=== PATIENT | female | born 1960 | race Caucasian/White ===

== ENCOUNTER 2016-12-05 07:46 | Inpatient (IN) | payer BC ==
--- NOTE | 2016-12-04 10:02 | HP ---
DATE OF CLINIC: 11/22/2016 YANNI REGALADO : 1960 PLANNED PROCEDURE: Left Total Hip Arthroplasty DATE OF PROCEDURE: December 05, 2016 SURGEON: Erick Vazquez M.D. PCP: Dr. Mariia Orellana HISTORY OF PRESENT ILLNESS Yanni Regalado is a 56 year old female. * Medication list reviewed with patient allergy list reviewed with patient. Mrs. Regalado is in today pre-operatively for her upcoming left total hip arthroplasty on 12/05/16. Patient presents in good spirits and is eager to proceed. She denies recent illness or change in health. Patient is post a R ZANDRA with Dr. Vazquez 11/30/15 and did well with the exception of post-op nausea. She states she gets motion sickness easily and is requesting preemption with a Scopolamine patch or alternative. No other surgical complications. Her recent consult with Dr. Vazquez follows: 56-year-old female well known to me for a right ZANDRA on 11/30/15 from which she has done very well. Unfortunately, she has been having increasing problems with her left hip. With her left hip she has known degenerative disease. She uses a cane in her right hand intermittently for discomfort, primarily in the groin with radiation into the proximal thigh. She has symptoms mainly with weight-bearing, particularly with startup and with loaded flexion such as getting out of a chair or climbing a stair. She does have mild rest pain, no radicular symptoms. She is using Meloxicam daily, which helps, but is no longer satisfactory in its efficacy for her. She is interested in consideration of definitive management options. She does work in a sedentary job position. She drinks moderately. She is a non-smoker. CURRENT MEDICATION * Acyclovir 800 MG Tablet as needed for outbreaks, 0 days, 0 refills * Meloxicam 15 MG Tablet 1 once a day sig 1 qd, called into [facility] in [place] phone # [phone], 0 days, 1 refills * TraMADol HCl 50 MG Tablet 1 po q 6 hours prn pain, 5 days, 0 refills PAST MEDICAL/SURGICAL HISTORY Reported: Medical: History of Arthritis. Surgical / Procedural: Replacement of a hip Right total hip replacement done 11/30/[address] Vazquez. SOCIAL HISTORY Behavioral: Never smoked. Smoking status: Never smoker. Alcohol: Alcohol 2 beers daily. Work: Occupation quality control manager. ALLERGIES * No Known Allergies REVIEW OF SYSTEMS Systemic: No fever and no recent weight change. Head: No head symptoms. Cardiovascular: No cardiovascular symptoms. Pulmonary: No pulmonary symptoms. Gastrointestinal: No gastrointestinal symptoms. Psychological: No psychological symptoms. Skin: No skin lesions and no rash. PHYSICAL FINDINGS * Vitals taken 11/22/2016 10:11 am BP-Sitting R 96/65 mmHg 100 - 120/56 - 80 BP Cuff Size Regular Pulse Rate-Sitting 67 bpm 50 - 100 Temp-Oral 97.5 F 96 - 101 Height 64.5 in 59 - 69 Weight 156 lbs 98 - 183 Body Mass Index 26.4 kg/m2 Body Surface Area 1.77 m2 Pain Level 5 Ears, Nose, Throat: * ENT: normal. Lungs: * Clear to auscultation. Cardiovascular: Heart Rate and Rhythm: * Normal. Abdomen: * Normal. Neurological: Motor: * Dominant Hand = Right Hand. Patient is a well-developed, thin female in no acute distress, normal-appearing mood and affect. She has an antalgic gait at startup with trace Trendelenburg that improves after several steps. Evaluation of the left hip shows skin integrity to be intact without wounds, rashes or lesions. Mild tenderness laterally over the trochanter, NT in the groin, NT in the sciatic notch. ROM is just shy of 90 degrees of flexion, 40 degrees of abduction, 60 degrees ER, 30 degrees IR with significant groin discomfort. Patient can adduct to the midline and extend fully. Thigh is soft and NT. No atrophy or asymmetry compared to the contralateral side. Evaluation of the knee shows no focal tenderness and full, non-irritable motion with a normal ligamentous exam. Calf is soft and NT. Distal light touch sensation and motor function are grossly intact and symmetric. Pulses are palpable. Sitting SLR is negative. Contralateral hip is non-irritable; greater than 90 degrees flexion, 30 degrees IR, 70 degrees ER, 50 degrees of abduction, adduction past the midline and full extension. She has no pain with resisted hip flexion at 90 degrees. TESTS Pelvis and right hip from today show significant concentric narrowing of the left hip. There is a femoral head skirt osteophyte as well as a superolateral acetabular osteophyte and a medial acetabular osteophyte. Significant subchondral cystic changes within the femoral head are seen without collapse. Proximal femoral bony mineralization appears reasonable. Limited view contralateral press-fit arthroplasty shows no change in position or alignment compared to prior films. ASSESSMENT * Localized primary osteoarthritis of the left hip Advanced degenerative disease, left hip. 9 months post right ZANDRA, doing well. PREVIOUS TESTS * Test: CBC WITH DIFF Report Date: 11/10/2016 WBC 5.6 10*3/mL MCV 95.1 fL BASOPHIL 0.7 % RBC 3.87 10*6/uL Low NEUTROPHILS 53.1 % MCH 31.0 pg MCHC 32.6 g/dL Low RDW 12.3 % PLATELET COUNT 230 10*3/mL IMM NEUT % 0.4 % IMM NEUT # 0.0 10*3/mL MONOCYTES 9.2 % EOSINOPHIL 2.2 % HCT 36.8 % Low HGB 12.0 g/L LYMPHOCYTE 34.4 % ANC 3.0 10*3/mL * Test: URINALYSIS Report Date: 11/10/2016 GLUCOSE NEGATIVE PH,URINE 7.0 SPEC. GRAVITY 1.015 KETONE NEGATIVE NITRITE NEGATIVE BLOOD NEGATIVE BILIRUBIN NEGATIVE APPEARANCE CLEAR PROTEIN NEGATIVE COLOR YELLOW LEUK ESTERASE NEGATIVE UROBILINOGEN NORMAL * Test: PROTHROMBIN TIME Report Date: 11/10/2016 PROTIME 10.5 s INR 1.00 * Test: PARTIAL THROMBOPLASTIN TIME Report Date: 11/10/2016 APTT 22.3 s Low * Test: COMPREHENSIVE METABOLIC PANEL Report Date: 11/10/2016 ALT/SGPT 23 U/L ALBUMIN 4.1 g/dL ALB/GLOB RATIO 1.5 BUN 21 mg/dL BUN/CREAT RATIO 30 High CALCIUM 9.2 mg/dL GLUCOSE 91 mg/dL CREATININE 0.7 mg/dL SODIUM 138 meq/L POTASSIUM 4.4 meq/L CHLORIDE 101 meq/L CARBON DIOXIDE 30 meq/L ANION GAP 11 meq/L TOT PROTEIN 6.9 g/dL GLOBULIN 2.8 g/dL BILI,TOTAL 0.7 mg/dL AST/SGOT 20 U/L ALK PHOSPHATASE 39 U/L GFR 86 * Test: MRSA SCREEN Report Date: 11/11/2016 MRSA SCREEN NEGATIVE * Test: MSSA SCREEN Report Date: 11/11/2016 MSSA SCREEN POSITIVE FOR STAPHYLOCOCCUS AUREUS Abnormal THERAPY * Patient not eligible for fall risk assessment. PLAN * Unilateral primary osteoarthritis, left hip Physical Therapy: *Other * OTHER OxyCONTIN 10 MG T12A, 1 po q 12 hours-TO BE USED FOR AFTER SURGERY, 10 days, 0 refills TraMADol HCl 50 MG TABS, 1 po q 6 hours prn pain-TO BE USED FOR AFTER SURGERY, 5 days, 0 refills OxyCODONE HCl 5 MG TABS, 1-2 po q 4-6 hours for break thru pain if needed-TO BE USED FOR AFTER SURGERY, 5 days, 0 refills Mupirocin 2 % OINT, apply into each nostril two times a day (morning and night) for 5 days prior to surgery date. NEED TO START ON November 30, 2016, 5 days, 0 refills * Total hip replacement -Left Discussed with patient in detail the limitations, expectations as well as risks and possible complications of surgery including, but not limited to wound problems or infection, neurovascular injury, continued hip pain or dysfunction, postop instability including the possibility of dislocation and/or postop leg length discrepancy, and the possibility of prosthetic wear or failure over time that may require additional operative or non-operative treatment. Patient also realizes the perioperative risks including risks associated with anesthesia and would like to proceed. A full PAR conference was held, questions and concerns addressed and informed consent was obtained. Patient will be sent from my office for completion of the preoperative workup. Patient will use enteric coated aspirin 32mg daily for 6 weeks postoperatively for DVT prophylaxis. Patient would like to perform their postop PT at [facility] in [place] with total hip arthroplasty protocol, posterior hip precautions. CARE TEAM Mariia Orellana MD [facility] CC: Mariia Orellana MD [facility] [place] RS/sg
[2016-12-05] MEDS ORDERED: LACTATED RINGERS 1,000 ML ONE (09:14)
[2016-12-05] MEDS ORDERED: GABAPENTIN 600 MG TABLET ONE (09:15)
[2016-12-05] MEDS ORDERED: OXYCODONE HCL 10 MG TAB.SR PO ONE ×2 (09:15)
[2016-12-05] MEDS ORDERED: ONDANSETRON 4 MG/2ML 2 ML VIAL IV ONE (09:15)
[2016-12-05] MEDS ORDERED: CELECOXIB 200 MG CAPSULE PO ONE (09:15)
[2016-12-05] MEDS ORDERED: FAMOTIDINE 20 MG TABLET ONE (09:15)
[2016-12-05] MEDS ORDERED: TRAMADOL HCL 50 MG TABLET ONE (09:15)
[2016-12-05] MEDS ORDERED: FAMOTIDINE 20 MG TABLET PO ONE (09:15)
[2016-12-05] MEDS ORDERED: CEFAZOLIN SODIUM 2 GRAM PREMIX 100 ML IV PRN (09:15)
[2016-12-05] MEDS ORDERED: CLONIDINE HCL 0.1 MG/24 HR (7 DAY PATCH) TD ONE (09:15)
[2016-12-05] MEDS ORDERED: IV START KIT ONE (09:15)
[2016-12-05] MEDS ORDERED: ONDANSETRON 4 MG/2ML 2 ML VIAL ONE ×2 (09:15→11:13)
[2016-12-05] MEDS ORDERED: TRAMADOL HCL 50 MG TABLET PO ONE (09:15)
[2016-12-05] MEDS ORDERED: GABAPENTIN 600 MG TABLET PO ONE (09:15)
[2016-12-05] MEDS ORDERED: CELECOXIB 200 MG CAPSULE ONE (09:16)
[2016-12-05] MEDS: CLONIDINE HCL 0.1 MG/24 HR (7 DAY PATCH) TD SCH (09:41)
[2016-12-05] MEDS ORDERED: MIDAZOLAM HCL 5 MG/5 ML VIAL ONE (09:54)
[2016-12-05] MEDS ORDERED: FENTANYL 100 MCG/2 ML VIAL ONE (09:54)
[2016-12-05] MEDS ORDERED: PROPOFOL 20 ML IV ONE ×3 (09:57→11:40)
[2016-12-05] MEDS ORDERED: SCOPOLAMINE 1.5 MG/72 HR 1 EACH PATCH TD ONE (10:42)
[2016-12-05] MEDS ORDERED: FAMOTIDINE 10 MG/ML 2ML VIAL ONE (11:13)
[2016-12-05] MEDS ORDERED: DEXAMETHASONE SOD PHOS 4 MG/1 ML VIAL ONE (11:13)
[2016-12-05] MEDS ORDERED: BUPIVACAINE 0.25% (MDV) 24 ML, MORPHINE SULFATE 8 MG, EPINEPHRINE 0.3 MG in SODIUM CHLO... IF PRN (11:20)
[2016-12-05] MEDS ORDERED: BUPIVACAINE 0.25% (MDV) 20 ML in SODIUM CHLORIDE 0.9% FLUSH 20 ML IF PRN (11:20)
[2016-12-05] MEDS ORDERED: POLYMYXIN B SULFATE 500,000 UNITS, BACITRACIN 25,000 UNITS in SODIUM CHLORIDE 3 L IRRIG... IR PRN (11:20)
[2016-12-05] MEDS ORDERED: TRANEXAMIC ACID 1,000 MG in SODIUM CHLORIDE 0.9% 100 ML IV PRN (11:20)
[2016-12-05] MEDS ORDERED: EPHEDRINE SULFATE UD SYR 25 MG 25 MG/5 ML SYRINGE IV ONE (11:36)
[2016-12-05] MEDS ORDERED: ONDANSETRON 4 MG/2ML 2 ML VIAL IV PRN ×2 (11:58→12:59)
[2016-12-05] MEDS ORDERED: ATROPINE SULFATE 0.4 MG/1 ML VIAL IV PRN (11:58)
[2016-12-05] MEDS ORDERED: PROMETHAZINE HCL 25 MG/ML VIAL IM PRN (11:58)
[2016-12-05] MEDS ORDERED: HYDROMORPHONE HCL 1 MG/ML SYRINGE IV PRN (11:58)
[2016-12-05] MEDS ORDERED: FENTANYL 100 MCG/2 ML VIAL IV PRN (11:58)
[2016-12-05] MEDS ORDERED: NALOXONE HCL 0.4 MG/ML VIAL IV PRN (11:58)
[2016-12-05] MEDS ORDERED: LACTATED RINGERS 1,000 ML IV SCH (12:00)
--- NOTE | 2016-12-05 12:58 | PCMBPN ---
Brief Post Op Note: Date of Procedure: 12/05/16 Preoperative Diagnosis: DJD left hip Postoperative Diagnosis: same Procedure: left ZANDRA Surgeon: Erick Vazquez MD Assist: Kiki (NADINE) Anesthesia: spinal (Jeremías) Condition: stable to PAR Complications: none IV Fluids: 2500 mLs of LR Urine Output: 75 mLs Estimated Blood Loss: 200 mLs Tourniquet Time: [N/A] Specimens: [N/A] Implants: Trilock Drains: none
[2016-12-05] MEDS ORDERED: TEMAZEPAM 15 MG CAPSULE PO PRN (12:59)
[2016-12-05] MEDS ORDERED: TRAMADOL HCL 50 MG TABLET PO PRN ×2 (12:59→18:00)
[2016-12-05] MEDS ORDERED: HYDROMORPHONE HCL 0.5 MG/0.5 ML SYRINGE IV PRN (12:59)
[2016-12-05] MEDS ORDERED: CALCIUM CARBONATE 500 MG TAB.CHEW PO PRN (12:59)
[2016-12-05] MEDS ORDERED: CEFAZOLIN SODIUM 1 GRAM PREMIX 1 G in Premix (D5W) 50 ml 1 EACH IV SCH (13:00)
[2016-12-05] MEDS ORDERED: ACETAMINOPHEN 500 MG TABLET PO SCH (13:00)
[2016-12-05] MEDS ORDERED: ACYCLOVIR 400 MG TABLET PO PRN (13:38)
--- NOTE | 2016-12-05 13:57 | RAD ---
PELVIS HISTORY: Status post left hip arthroplasty. Frontal portable radiograph of the lower pelvis and hips. COMPARISON: 11/30/2015. FINDINGS: POSTPROCEDURAL CHANGE: Status post interval left total hip arthroplasty. Redemonstration of right hip arthroplasty hardware. ALIGNMENT: Grossly anatomic. FRACTURE: None identified. ADDITIONAL POSTPROCEDURAL FINDINGS: Soft tissue gas. Urinary catheter noted. CALCIFICATIONS: Redemonstration of coarse calcification of the right hemipelvis. IMPRESSION: Grossly unremarkable immediate post arthroplasty appearance of the left hip.
[2016-12-05] MEDS ORDERED: PUMP TUBING ONE (15:12)
[2016-12-05] MEDS: D5 1/2NS with 20 mEq KCL 1,000 ML IV SCH ×2 (15:30→22:19)
[2016-12-05 15:41] VITALS: BMI 26.4
[2016-12-05] MEDS: OXYCODONE HCL 5 MG TABLET PO PRN ×3 (15:50→22:15)
[2016-12-05] MEDS: KETOROLAC TROMETHAMINE 30 MG/ML 1 ML VIAL IV PRN (17:31)
[2016-12-05] MEDS: ACETAMINOPHEN 500 MG TABLET PO SCH (17:41)
[2016-12-05] MEDS: CEFAZOLIN SODIUM 1 GRAM PREMIX 1 G in Premix (D5W) 50 ml 1 EACH IV SCH (20:06)
[2016-12-05] MEDS: DOCUSATE SODIUM 100 MG CAPSULE PO SCH (20:09)
[2016-12-05] MEDS: ASCORBIC ACID 500 MG TABLET PO SCH (20:09)
[2016-12-06] MEDS: KETOROLAC TROMETHAMINE 30 MG/ML 1 ML VIAL IV PRN (01:26)
[2016-12-06] MEDS: ACETAMINOPHEN 500 MG TABLET PO SCH ×5 (01:26→23:48)
[2016-12-06] MEDS: OXYCODONE HCL 5 MG TABLET PO PRN (03:57)
[2016-12-06] MEDS: CEFAZOLIN SODIUM 1 GRAM PREMIX 1 G in Premix (D5W) 50 ml 1 EACH IV SCH (03:57)
[2016-12-06 06:14] LABS: HEMATOCRIT 30.6 % (37.0-47.0); HEMOGLOBIN 10.2 gm/l (12.0-16.0); MEAN CELL VOLUME 94.7 fl (81.0-99.0); MEAN CORPUSCULAR HEMOGLOBIN 31.6 pg (27.0-31.0); MEAN CORPUSCULAR HGB CONC 33.3 g/dl (33.0-37.0)
[2016-12-06 06:41] LABS: CALCIUM 8.2 mg/dL (8.6-10.3)
--- NOTE | 2016-12-06 08:07 | PDOC43 ---
- Subjective Findings: Pt seen this morning sitting up and doing well. Mild pain but controlled with meds. She was able to stand last evening. States she would like to go [place] today. Subjective: Reports Flatus, Reports Pain Tolerable, Denies Chest Pain, Denies Shortness of Breath, Denies Nausea, Denies Vomiting, Denies Fever - Objective Vital Signs Temperature 98.2 F 12/06/16 07:26 Pulse Rate 78 12/06/16 07:26 Respiratory Rate 20 12/06/16 07:26 Blood Pressure 84/54 12/06/16 07:26 O2 Saturation by Pulse Oximetry 98 12/06/16 07:26 Oxygen Delivery Method Room Air Oxygen Flow Rate 0 Laboratory 12/06/16 05:30 12/06/16 05:30 12/06/16 05:30 RBC 3.23 L MCH 31.6 H Estimated GFR 103 H Calcium 8.2 L Active Medication Orders Category Date Time Status Acetaminophen [Tylenol] Med 12/05/16 18:00 Active 1,000 mg PO Q6H Acyclovir [Zovirax] Med 12/05/16 13:38 Active 800 mg PO PRN PRN Ascorbic Acid [Vitamin C] Med 12/05/16 21:00 Active 500 mg PO BID Aspirin (Enteric Coated) [Ecotrin] Med 12/06/16 09:00 Active 325 mg PO DAILY Atropine Sulfate Med 12/05/16 11:58 Active 0.2 mg IV X1 PRN Bisacodyl [Dulcolax] Med 12/08/16 12:59 Active 10 mg [place] DAILY PRN Calcium Carbonate [Tums] Med 12/05/16 12:59 Active 1,000 - 2,000 mg PO Q2H PRN Cefazolin Sodium 2 Gram Premix [Ancef 2 Gram Premix] Med 12/05/16 09:15 Active 100 ml IV ON HOLD TO OR Clonidine HCl 0.1 mg/24 Hr [Catapres-Tts] Med 12/05/16 09:15 Active 1 each TD X1 D5 1/2NS with 20 mEq KCL [D51/2NS with 20 mEq KCL] 1, Med 12/05/16 13:00 Active 000 ml IV 125 mls/hr Docusate Sodium [Colace] Med 12/05/16 21:00 Active 100 mg PO BID Hydromorphone HCl [Dilaudid] Med 12/05/16 12:59 Active 0.5 mg IV Q1H PRN Ketorolac Tromethamine [Toradol] Med 12/05/16 12:59 Active 30 mg IV Q6H PRN Magnesium Hydroxide [Milk of Magnesia] Med 12/06/16 12:59 Active 30 ml PO DAILY PRN Meloxicam [Mobic] Med 12/06/16 09:00 Active 15 mg PO DAILY Multivitamins [One-A-Day] Med 12/06/16 09:00 Active 1 tab PO DAILY Ondansetron 4 mg/2ml Vial [Zofran] Med 12/05/16 12:59 Active 4 - 6 mg IV Q6H PRN Oxycodone HCl [Roxicodone] Med 12/05/16 12:59 Active 5 - 10 mg PO Q4H PRN Remove Patch Med 12/06/16 09:15 Active 1 each TD X1 Remove Patch Med 12/06/16 12:59 Once 1 each TD X1 ONE Sodium Chloride 0.9% Flush [Normal Saline 10ml Flush] Med 12/05/16 12:59 Active 10 - 50 ml IV PRN PRN Sodium Chloride 0.9% Flush [Normal Saline 10ml Flush] Med 12/05/16 17:00 Active 10 ml IV Q8HR Temazepam [Restoril] Med 12/05/16 12:59 Active 15 mg PO BEDTIME PRN Tramadol HCl [Ultram] Med 12/05/16 18:00 Active 50 mg PO Q6H PRN Intake and Output 12/04/16 12/05/16 12/06/16 23:59 23:59 23:59 Intake Total 3850 2807 Output Total 2310 1800 Balance 1540 1007 General: Afebrile HEENT: Atraumatic Lungs: Normal Air Movement Abdomen: Soft, Non-Distended Skin: Normal Color Neurological: Alert, Oriented x 4 Psych/Mental Status: Normal Affect, Normal Mood - Left Lower Extremity Incision: Dressing Clean/Dry/Intact, Shadow Drainage Motor: Extensor Hallucis Longus: 5/5, Tibialis Anterior: 5/5, Gastrocnemius: 5/5 , Peroneals: 5/5, Quadriceps: 3/5 Gross Sensation to Light Touch: Present: Deep Peroneal Nerve, Superficial Peroneal Nerve, Medial Plantar Nerve Motion: Calf soft NT Knee rom 0-90 gentle hip ROM without pain. min assist with SLR - Disposition S/P Left hip arthroplasty Pod#1 1. Physical Therapy:Mobilize with PT/OT, encouraged bed exercise 2. Pain Control: Per protocol 3. DVT Prophylaxis: ASA, foot pumps and mobility 4. Disposition:Doing well. Plan for DC today if meets criteria. 5. Medical Issues:Hypotension. Asymptomatic at this time. Will monitor and consider fluid bolus.
[2016-12-06] MEDS: ASPIRIN (ENTERIC COATED) 325 MG TABLET.EC PO SCH (08:57)
[2016-12-06] MEDS: MULTIVITAMINS 1 TAB TABLET PO SCH (08:57)
[2016-12-06] MEDS: ASCORBIC ACID 500 MG TABLET PO SCH ×2 (08:57→20:59)
[2016-12-06] MEDS: DOCUSATE SODIUM 100 MG CAPSULE PO SCH ×2 (08:57→20:59)
[2016-12-06] MEDS: MELOXICAM 15 MG TABLET PO SCH (08:57)
[2016-12-06] MEDS: CLONIDINE HCL 0.1 MG/24 HR (7 DAY PATCH) TD SCH (08:57)
[2016-12-06] MEDS ORDERED: CELECOXIB 100 MG CAPSULE PO SCH (09:00)
[2016-12-06] MEDS ORDERED: REMOVE PATCH 1 EACH UNIT TD SCH (09:15)
[2016-12-06] MEDS: D5 1/2NS with 20 mEq KCL 1,000 ML IV SCH ×3 (09:42→20:59)
[2016-12-06] MEDS ORDERED: SODIUM CHLORIDE 0.9% 500 ML IV SCH (12:45)
[2016-12-06] MEDS ORDERED: MAGNESIUM HYDROXIDE 30 ML UDCUP PO PRN (12:59)
[2016-12-06] MEDS ORDERED: REMOVE PATCH 1 EACH UNIT TD ONE (12:59)
[2016-12-07] MEDS: D5 1/2NS with 20 mEq KCL 1,000 ML IV SCH (05:15)
[2016-12-07] MEDS: ACETAMINOPHEN 500 MG TABLET PO SCH (06:38)
[2016-12-07 07:03] LABS: HEMATOCRIT 30.2 % (37.0-47.0); HEMOGLOBIN 10.1 gm/l (12.0-16.0)
[2016-12-07] MEDS: MELOXICAM 15 MG TABLET PO SCH (09:45)
[2016-12-07] MEDS: ASPIRIN (ENTERIC COATED) 325 MG TABLET.EC PO SCH (09:45)
[2016-12-07] MEDS: MULTIVITAMINS 1 TAB TABLET PO SCH (09:45)
[2016-12-07] MEDS: DOCUSATE SODIUM 100 MG CAPSULE PO SCH (09:45)
[2016-12-07] MEDS: ASCORBIC ACID 500 MG TABLET PO SCH (09:45)
--- NOTE | 2016-12-07 09:50 | PDOC43 ---
- Subjective Findings: Ortho POD 2 L ZANDRA Patient awake, A and O times 4 this am and in good spirits. No present c/o. Pain is well controlled. Denies CP/SOB/NV. Taking a regular diet and positive flatus. Good progress with ambulatory PT but asymptomatic episodes of hypotension. Would like to discharge home today. Subjective: Denies Chest Pain, Denies Shortness of Breath, Denies Nausea, Denies Vomiting, Denies Fever - Objective Vital Signs Temperature 98.4 F 12/07/16 07:42 Pulse Rate 72 12/07/16 07:42 Respiratory Rate 17 12/07/16 07:42 Blood Pressure 111/66 12/07/16 07:42 O2 Saturation by Pulse Oximetry 97 12/07/16 07:42 Oxygen Delivery Method Room Air Oxygen Flow Rate 0 Laboratory 12/07/16 06:10 12/06/16 05:30 Active Medication Orders Category Date Time Status Acetaminophen [Tylenol] Med 12/05/16 18:00 Active 1,000 mg PO Q6H Acyclovir [Zovirax] Med 12/05/16 13:38 Active 800 mg PO PRN PRN Ascorbic Acid [Vitamin C] Med 12/05/16 21:00 Active 500 mg PO BID Aspirin (Enteric Coated) [Ecotrin] Med 12/06/16 09:00 Active 325 mg PO DAILY Bisacodyl [Dulcolax] Med 12/08/16 12:59 Active 10 mg [place] DAILY PRN Calcium Carbonate [Tums] Med 12/05/16 12:59 Active 1,000 - 2,000 mg PO Q2H PRN Cefazolin Sodium 2 Gram Premix [Ancef 2 Gram Premix] Med 12/05/16 09:15 Active 100 ml IV ON HOLD TO OR D5 1/2NS with 20 mEq KCL [D51/2NS with 20 mEq KCL] 1, Med 12/05/16 13:00 Active 000 ml IV 125 mls/hr Docusate Sodium [Colace] Med 12/05/16 21:00 Active 100 mg PO BID Hydromorphone HCl [Dilaudid] Med 12/05/16 12:59 Active 0.5 mg IV Q1H PRN Magnesium Hydroxide [Milk of Magnesia] Med 12/06/16 12:59 Active 30 ml PO DAILY PRN Meloxicam [Mobic] Med 12/06/16 09:00 Active 15 mg PO DAILY Multivitamins [One-A-Day] Med 12/06/16 09:00 Active 1 tab PO DAILY Ondansetron 4 mg/2ml Vial [Zofran] Med 12/05/16 12:59 Active 4 - 6 mg IV Q6H PRN Oxycodone HCl [Roxicodone] Med 12/05/16 12:59 Active 5 - 10 mg PO Q4H PRN Remove Patch Med 12/06/16 09:15 Active 1 each TD X1 Sodium Chloride 0.9% Flush [Normal Saline 10ml Flush] Med 12/05/16 12:59 Active 10 - 50 ml IV PRN PRN Sodium Chloride 0.9% Flush [Normal Saline 10ml Flush] Med 12/05/16 17:00 Active 10 ml IV Q8HR Temazepam [Restoril] Med 12/05/16 12:59 Active 15 mg PO BEDTIME PRN Tramadol HCl [Ultram] Med 12/05/16 18:00 Active 50 mg PO Q6H PRN Intake and Output 12/05/16 12/06/16 12/07/16 23:59 23:59 23:59 Intake Total 3850 4867 1340 Output Total 2310 5300 1650 Balance 1540 -433 -310 Neurological: No Normal Gait (ambulating with a walker post L ZANDRA) Peripheral Pulses: Left Posterior Tibialis: 1+, Left Dorsalis Pedis: 1+ - Left Lower Extremity Incision: Well Approximated (with subcutaneous closure, skin glue and steri's. Moderate thigh edema but SNT, calf SNT.), No Dressing Saturated, No Shadow Drainage, No Drainage, No Erythema, No Rash, No Lydia Intact (none) Motor: Extensor Hallucis Longus: 5/5, Tibialis Anterior: 5/5, Gastrocnemius: 5/5 , Peroneals: 5/5, Quadriceps: 4/5 Gross Sensation to Light Touch: Present: Deep Peroneal Nerve, Superficial Peroneal Nerve, Medial Plantar Nerve, Lateral Plantar Nerve, Sural Nerve, Saphenous Nerve Motion: Supine hip flexion to 80, abduction to 30, SLR without assist. All planes passively improved. Ankle motion full actively. - Disposition S/P Left hip arthroplasty Ortho POD 2 doing very well. 1. Continue Physical Therapy:Mobilize with PT/OT, encouraged bed exercise 2. Continue Pain Control: Per protocol 3. Continue DVT Prophylaxis: ASA, foot pumps and mobility 4. Disposition:Doing well. Plan for DC today if meets criteria. 5. Medical Issues:Hypotension resolved, asymptomatic.
--- NOTE | 2016-12-07 10:31 | OP ---
RACHELE BADILLO [id number] : 1960 DATE OF SURGERY: December 05, 2016 PREOPERATIVE DIAGNOSIS: Degenerative joint disease left hip POSTOPERATIVE DIAGNOSIS: Same PROCEDURE: Left Total Hip Arthroplasty COMPONENTS: Tri-Lock size 3 standard offset press-fit femoral stem, 36mm +1.5 delta ceramic femoral head, 52mm [place] 100 press-fit acetabular shell. SURGEON: Taylor ASSIST: Kiki RADER) ANESTHESIA: Spinal per Jeremías EBL: 200 cc URINE OUTPUT: 75 cc IVF REPLACEMENT: Per anesthesia, 2.5 liters crystalloid DRAINS: None COMPLICATIONS: None HISTORY: Briefly, patient is a 56-year-old female with clinical and radiographic evidence most consistent with degenerative joint disease of their left hip. They have failed traditional nonoperative measures and at this point desire elective surgical management. For additional details, refer to previously dictated Preoperative History and Physical Exam. A full PAR conference was held, questions and concerns were addressed, and informed consent was obtained. FINDINGS: Advanced degenerative changes PROCEDURE: The patient was taken to the operating room and after previously described anesthesia was placed in the lateral decubitus position on the operating room table and held with the peg board positioner. Kosta prominences were well padded and an axillary roll was placed. The left hip girdle and lower extremity were then prepped and draped out in the usual sterile fashion. Preoperative antibiotics were given empirically. Intraoperative DVT prophylaxis consisted of bilateral mechanical foot pumps. Personal filtration suits were used as was a closed room environment. An oblique ten centimeter incision was made using the minimally invasive guide posterior and extending slightly proximal to the greater trochanter. We dissected through subcutaneous tissue down to the gluteus fascia. Electrocautery was used at this point and throughout the duration of the case to establish and maintain hemostasis. The gluteus fascia was incised in line with the incision and the muscle fibers split to expose the underlying bursal tissue. Tranexamic acid was infiltrated over 10 minutes prior to incision, 1 gram dose per protocol. A similar 2nd dose was given at initiation of closure. A deep self retaining field retractor was placed. The short external rotators were identified, the piriformis was retracted superiorly and protected throughout the procedure. The underlying capsule was tagged and reflected in a U fashion off the femoral neck for later repair. Release of the capsule allowed for dislocation of the hip and the femoral head was brought up into the operative field. A femoral neck cut was made proximal to the lesser trochanter as per our preoperative templating. We then translated the femur anteriorly exposing the acetabulum. The remaining labrum was excised circumferentially. Osteophytes were debrided posteriorly. We reamed to the true acetabular floor and then incrementally up to a 51 as per our preoperative plan at which point we noted circumferential bleeding cancellous bone. This was trialed at approximately 45 degrees of abduction and 20 degrees of anteversion with good fit and stability. We then impacted the true acetabular component which was seated completely. An apical hole cover was placed and we impacted the neutral crosslinked polyethylene liner. Attention was then directed back to the femur. The remaining soft tissue was cleared from the piriformis fossa and we use a rongeur and box osteotome to enter the proximal femoral canal followed by the canal seeker and then the broach only system up to a size 3 matching the patient's [place] anteversion with good proximal fill and rotational stability. This was trialed with a standard offset +1.5. The hip was then reduced with good stability to 70 degrees of internal rotation in 90 degrees of flexion and full extension with no instability on external rotation. There was good soft tissue balance and approximately equal leg lengths. Satisfied, trial components were removed and we impacted the true femoral stem. The trunnion was then cleaned and dried and the femoral head was impacted. The hip was then reduced with stability as previously discussed. Satisfied, we turned our attention to closure. The wound was copiously irrigated with antibiotic pulsatile lavage. We then advanced the capsule to the gluteus medius insertion. The gluteus fascia was closed with a running number two PDO StratoFix suture. 1st periarticular injection was given at this point per protocol into the capsule, synovium, gluteus and external rotators. The subcutaneous tissue was closed with interrupted 2-0 and 3-0 Vicryl and the skin was closed with a running 4-0 Monocryl stitch with Indermil and Steri-Strips. The 2nd periarticular injection was done at this point per protocol into the subcutaneous tissue superiorly and anteriorly to the incision. A sterile hip dressing was then applied, the patient was returned to the supine position, transferred to their hospital bed, and sent to the postoperative recovery room in stable condition. They tolerated the procedure well. Sponge, instrument, and needle count were correct. MIGUEL/mrw CC: Mariia Orellana MD [facility]
[2016-12-07 10:39] VITALS: BP 110/68
--- NOTE | 2016-12-08 09:59 | DS ---
Yanni BADILLO [id number] : 1960 DATE OF ADMISSION: December 05, 2016 DATE OF DISCHARGE: December 07, 2016 DISCHARGE DIAGNOSES: Left hip degenerative joint disease. HOSPITAL PROCEDURES: Left total hip arthroplasty. SURGEON: Erick Vazquez M.D. BRIEF HISTORY: Patient is a 56-year-old female with both clinical and radiographic evidence of advanced DJD of their left hip. For the full history please see the chart note. BRIEF HOSPITAL COURSE: Patient was admitted on December 05, 2016 Dr. Erick Vazquez performed a left total hip arthroplasty. Patient was moved to the recovery room in stable condition. They were given 4 doses of antibiotic for empiric coverage. DVT prophylaxis consisted of aspirin 325 mg daily, pneumatic compression CARLIN hose and mobility. PT was instituted postop day 1 with left total hip arthroplasty protocol, weightbearing as tolerated. Their incision site remained benign, their vital signs remained stable and they remained neurally and vascularly intact through the duration of the stay. They were discharged home postop day, 2 to continue outpatient PT at [facility] in [place] with left total hip arthroplasty protocol, weightbearing as tolerated keeping total hip precautions in mind. DISCHARGE INSTRUCTIONS: 1. Keep the wound site clean and dry, change dressing daily or as needed. 2. Continue the use of CARLIN hose bilaterally. 3. Ice pack over the wound site prn. 4. Continue total hip precautions. 5. Outpatient PT at [facility] in [place] with left total hip arthroplasty protocol, weightbearing as tolerated. MEDICATIONS: 1. Patient is to resume normal preop medications. 2. Anti-coagulation will be with aspirin 325 mg daily for six weeks. 3. Pain management will be with Oxycodone, 5mg 1-2 every 4 hours prn for breakthrough pain, and Tramadol, 50mg every 6 hours prn pain. 4. Patient was also advised on utilization of a multi-vitamin with mineral daily as well as Vitamin C, 500mg, daily for 1 month. 5. Patient encouraged to take an iron supplement in the form of ferrous sulfate, 325mg daily for 4 weeks. 6. Colace, 100mg, b.i.d. until regular bowel movement. FOLLOW-UP: Please return to the clinic as scheduled for your first scheduled postop check. Prior to that point in time please call with any questions or concerns. Job [id number] CC: [facility] Mariia Orellana M.D. [facility] [place]
[2016-12-08] MEDS ORDERED: BISACODYL 10 MG SUP PR PRN (12:59)
== END 2016-12-07 11:15 | disposition home or self-care (01) | DRG 470 ==
LOC: OR 09:08 → MS 13:53
PROVIDERS: ADMIT Orthopaedic Surgery; ATTEND Orthopaedic Surgery
PROC: 0SRB03A Replacement of Left Hip Joint with Ceramic Synthetic Substitute, Uncemented, Open Approach (ICD-10-PCS; principal; 2016-12-05)
DX: M16.12 Unilateral primary osteoarthritis, left hip (principal); I95.9 Hypotension, unspecified